=== PATIENT | male | born 1990 | race African-American/Black ===

== ENCOUNTER 2016-11-08 05:18 | Emergency (ER) | payer OTHER ==
[~2016-11-08] VITALS: Ht 172.7 cm; Wt 122.4 kg
[~2016-11-08 05:18] MED LIST: AMOXICILLIN875 MG PO; BACTRIM,SEPT1 TABLET PO; MOTRIN800 MG PO; MOUTH SORE15 ML MM; NORCO 5/3251 TABLET PO; PEN-VEE K,VEET500 MG PO; TESSALON200 MG PO; ZITHROMAX250 MG PO
[2016-11-08 07:01] LABS: INFLUENZA A VIRAL ANTIGEN NEGATIVE; INFLUENZA B VIRAL ANTIGEN NEGATIVE
[2016-11-08] MEDS ORDERED: ZITHROMAX Z-PA250 MG PO (07:21)
[2016-11-08] MEDS ORDERED: MOTRIN800 MG PO (07:21)
[2016-11-08 07:49] VITALS: BP 130/87
== END 2016-11-08 07:50 | disposition home or self-care (01) ==
LOC: EME 05:18
PROVIDERS: Emergency Medicine
DX: J40 Bronchitis, not specified as acute or chronic (principal)
CPT/HCPCS: 71020; 87502; 99281; 99282

== ENCOUNTER 2017-02-06 03:51 | Emergency (ER) | payer OTHER ==
[~2017-02-06] VITALS: Ht 177.8 cm; Wt 118.4 kg
[~2017-02-06 03:51] MED LIST changes: +ZITHROMAX Z-PA250 MG PO
[2017-02-06 05:00] LABS: BASE EXCESS -1.1 mEq/L (-3 to +3); BICARBONATE 23.5 mEq/L (22-26); CARBOXY HGB 2.8 % (0-5); METHEMOGLOBIN 1.2 % (0-1.5); PCO2 38 mm Hg (35-45); PO2 80 mm Hg (80-100)
[2017-02-06 05:01] LABS: COMMENTS - BLOOD GASES C+A+; DEVICE 980 VENT; FI02 60 %; MECHANICAL RATE 16 resp/min; MODE AC; SITE LR; TIDAL VOLUME 600 ML; TOTAL RESP RATE 20 resp/min
[2017-02-06 05:02] LABS: PEEP 5 CM/H20
[2017-02-06 05:26] LABS: CHLORIDE 107 mEq/L (99-109); POTASSIUM 4.1 mEq/L (3.7-5.4); SODIUM 142 mEq/L (136-147)
[2017-02-06 05:27] LABS: GLUCOSE 121 mg/dL (70-99)
[2017-02-06 05:29] LABS: ANION GAP 18 MEQ/L (2-14)
[2017-02-06 05:31] LABS: GFR ESTIMATE (CALCULATED) > 59 mL/min/; SERUM ETHYL ALCOHOL < 10 mg/dL
[2017-02-06 05:33] LABS: UREA NITROGEN (BUN) 15 mg/dL (9-23)
[2017-02-06 05:34] LABS: SALICYLATE < 5.0 MG/DL (15-30)
[2017-02-06 05:35] LABS: CREATINE KINASE 278 IU/L (1-294); TOTAL CK 278 IU/L (1-294)
[2017-02-06 05:41] LABS: CK-MB 0.8 ng/mL (0.0-4.9)
[2017-02-06 05:44] LABS: HEMATOCRIT 41.7 % (38.0-50.0); MCH 28.8 PG (29.0-34.0); MCHC 32.6 G/DL (30.0-36.0); MCV 88.3 FL (86-99); MEAN PLAT.VOLUME 12.2 uM^3 (9.0-12.4); PLATELET COUNT 354 K/uL (156-360); RBC DIS.WIDTH-CV 13.8 % (11.8-14.6); RBC DIS.WIDTH-SD 44.5 % (39-53); RED BLOOD COUNT 4.72 M/uL (4.00-5.50); WHITE BLOOD COUNT 8.9 K/uL (4.1-10.2)
[2017-02-06 05:47] LABS: AMPHETAMINE NEGATIVE (500 ng/mL); BARBITURATES NEGATIVE (200 ng/mL); BENZODIAZEPINES NEGATIVE (150 ng/mL); COCAINE NEGATIVE (150 ng/mL); INTERNAL CONTROLS VALID? YES; METHADONE NEGATIVE (200 ng/mL); METHAMPHETAMINE NEGATIVE (500 ng/mL); OPIATES (MORPHINE) NEGATIVE (100 ng/mL); OXYCODONE NEGATIVE (100 ng/mL); PHENCYCLIDINE PRESUMPTIVE POSITIVE (25 ng/mL); PROPOXYPHENE NEGATIVE (300 ng/mL); THC CANNABINOIDS PRESUMPTIVE POSITIVE (50 ng/mL); TRICYCLIC ANTIDEPRESSANTS NEGATIVE (300 ng/mL)
[2017-02-06 05:48] LABS: ADD MEDTOX COMMENT Y
[2017-02-06 11:07] VITALS: BP 132/76
== END 2017-02-06 11:11 | disposition home or self-care (01) ==
LOC: EME 03:51
PROVIDERS: Emergency Medicine
PROC: 5A1935Z Respiratory Ventilation, Less than 24 Consecutive Hours (ICD-10-PCS; principal; 2017-02-06)
PROC: 0BH17EZ Insertion of Endotracheal Airway into Trachea, Via Natural or Artificial Opening (ICD-10-PCS; principal; 2017-02-06)
DX: F19.129 Other psychoactive substance abuse with intoxication, unspecified (principal); F12.129 Cannabis abuse with intoxication, unspecified; J96.00 Acute respiratory failure, unspecified whether with hypoxia or hypercapnia; R45.1 Restlessness and agitation; R00.0 Tachycardia, unspecified; F17.200 Nicotine dependence, unspecified, uncomplicated
CPT/HCPCS: 36600; 70450; 71010; 80048; 82550; 82553; 82803; 84999; 85027; 87070; 87205; 90837; 93005; 94002; 99281; 99285; G0480; J1630; J2250; J2704; J7030

== ENCOUNTER 2017-02-16 07:17 | Emergency (ER) | payer OTHER ==
[~2017-02-16] VITALS: Ht 172.7 cm; Wt 119.0 kg
[2017-02-16] MEDS ORDERED: NORCO 5/3251 TABLET PO (07:43)
[2017-02-16] MEDS ORDERED: PEN-VEE K,VEET500 MG PO (07:43)
[2017-02-16 08:16] VITALS: BP 128/90
== END 2017-02-16 08:17 | disposition home or self-care (01) ==
LOC: EME 07:17
DX: K02.9 Dental caries, unspecified (principal)
CPT/HCPCS: 99281; 99283

== ENCOUNTER 2017-03-10 00:49 | Emergency (ER) | payer OTHER ==
[~2017-03-10] VITALS: Ht 172.7 cm; Wt 117.8 kg
[2017-03-10] MEDS ORDERED: TRAMADOL HCL50 MG PO (02:33)
[2017-03-10 02:54] VITALS: BP 121/68
== END 2017-03-10 02:56 | disposition home or self-care (01) ==
LOC: EME 00:49
DX: S83.92XA Sprain of unspecified site of left knee, initial encounter (principal); S80.02XA Contusion of left knee, initial encounter; V47.6XXA Car passenger injured in collision with fixed or stationary object in traffic accident, initial encounter; F17.200 Nicotine dependence, unspecified, uncomplicated
CPT/HCPCS: 73564; 99281; 99284

== ENCOUNTER 2017-05-17 08:52 | Emergency (ER) | payer OTHER ==
[~2017-05-17] VITALS: Ht 172.7 cm; Wt 114.8 kg
[~2017-05-17 08:52] MED LIST changes: +TRAMADOL HCL50 MG PO
[2017-05-17] MEDS ORDERED: NAPROSYN500 MG PO (09:29)
[2017-05-17 09:59] VITALS: BP 142/86
== END 2017-05-17 10:06 | disposition home or self-care (01) ==
LOC: EME 08:52
DX: M54.5 Low back pain (principal); M25.562 Pain in left knee; G89.29 Other chronic pain; F17.200 Nicotine dependence, unspecified, uncomplicated
CPT/HCPCS: 99281; 99283

== ENCOUNTER 2017-07-02 12:07 | Emergency (ER) | payer OTHER ==
[~2017-07-02] VITALS: Ht 175.3 cm; Wt 114.6 kg
[~2017-07-02 12:07] MED LIST changes: +NAPROSYN500 MG PO
[2017-07-02] MEDS ORDERED: SUDAFED 12-HOU120 MG PO (13:28)
[2017-07-02 13:59] VITALS: BP 124/74
== END 2017-07-02 14:00 | disposition home or self-care (01) ==
LOC: EME 12:07
DX: J06.9 Acute upper respiratory infection, unspecified (principal); F17.200 Nicotine dependence, unspecified, uncomplicated
CPT/HCPCS: 99281; 99284

== ENCOUNTER 2017-07-06 22:40 | Emergency (ER) | payer OTHER ==
[~2017-07-06] VITALS: Ht 175.3 cm; Wt 113.0 kg
[~2017-07-06 22:40] MED LIST changes: +SUDAFED 12-HOU120 MG PO
[2017-07-07] MEDS ORDERED: AMOXICILLIN500 M1 PO (00:20)
[2017-07-07 00:23] VITALS: BP 134/97
[2017-07-07] MEDS ORDERED: CHLORASEPTIC MA30 ML MM (00:34)
== END 2017-07-07 00:51 | disposition home or self-care (01) ==
LOC: EME 22:40
DX: J02.0 Streptococcal pharyngitis (principal); M79.1 Myalgia; J32.9 Chronic sinusitis, unspecified; F17.200 Nicotine dependence, unspecified, uncomplicated
CPT/HCPCS: 87502; 87651 90; 99281; 99284

== ENCOUNTER 2017-07-13 11:15 | Emergency (ER) | payer OTHER ==
[~2017-07-13] VITALS: Ht 175.3 cm; Wt 115.9 kg
[~2017-07-13 11:15] MED LIST changes: +AMOXICILLIN500 M1 PO; +CHLORASEPTIC MA30 ML MM
[2017-07-13 11:29] VITALS: BP 113/72
[2017-07-13] MEDS ORDERED: PREDNISONE20 MG PO (14:05)
== END 2017-07-13 14:19 | disposition home or self-care (01) ==
LOC: EME 11:15
DX: J02.0 Streptococcal pharyngitis (principal); G47.30 Sleep apnea, unspecified; R05 Cough; E66.3 Overweight; F17.200 Nicotine dependence, unspecified, uncomplicated
CPT/HCPCS: 87651 90; 99281; 99284; J0561; J7512